=== PATIENT | male | born 1940 ===

== ENCOUNTER 2020-08-10 16:41 | Inpatient (IN) ==
[2020-08-10] MEDS ORDERED: Melatonin 3 MG TABLET PO PRN (21:04)
[2020-08-10] MEDS ORDERED: Ondansetron 4 MG/2 ML VIAL IVP PRN (21:04)
[2020-08-10] MEDS ORDERED: Naloxone 0.4 MG/ML INJ IVP PRN (21:04)
[2020-08-10] MEDS ORDERED: Dextrose Gel 15 GM/37.5 ML TUBE PO PRN ×2 (21:10)
[2020-08-10] MEDS ORDERED: *HR* Dextrose 50 % in Water (Vial) 50 ML VIAL IVP PRN (21:10)
[2020-08-10] MEDS ORDERED: D5% in Water 1,000 ML IVC PRN (21:10)
[2020-08-10 22:03] LABS: VBG HCO3 18 mEq/L (21-27); VBG PCO2 64 mmHg (41-51); VBG PH 7.05 pH Units (7.32-7.42); VBG PO2 46 mmHg (25-50)
[2020-08-10 22:26] LABS: ABG Base Excess -12 mEq/L (-2 to 3); ABG HCO3 18 mEq/L (21-27); ABG Oxygen Saturation 90 % (95-98); ABG PCO2 59 mmHg (35-45); ABG PO2 81 mmHg (85-104); ABG TCO2 20 mEq/L (20-26)
[2020-08-10 23:11] LABS: Blood Urea Nitrogen > 130 mg/dL (8-23); Calcium 7.9 mg/dL (8.6-10.3); Carbon Dioxide 15 mEq/L (23-29); Chloride 96 mEq/L (98-107); Glucose 121 mg/dL (70-105); Potassium 5.1 mEq/L (3.5-5.1); Sodium 127 mEq/L (136-145); eGFR For African Americans 10 (> 60); eGFR For Non-African Americans 9 (> 60)
[2020-08-10] MEDS: 0.9 % Sodium Chloride 1,000 ML IVC SCH (23:59)
[2020-08-11 02:28] LABS: Basophils % 0.1 %; Eosinophils % 0.1 %; Hematocrit 32.3 % (37.5-50.1); Immature Granulocytes % 1.1 % (0-4); Lymphocytes # 1.9 K/mcL (0.6-4.6); Lymphocytes % 13.2 %; Mean Corpuscular Hemoglobin 29.9 pg (28.0-33.3); Mean Corpuscular Volume 96.7 fL (83.0-100.0); Mean Platelet Volume 10.2 fL (9.4-12.4); Monocytes # 1.5 K/mcL (0.0-1.3); Monocytes % 10.4 %; Neutrophils # 10.9 K/mcL (1.6-8.9); Platelet Count 200 K/mcL (140-400); Red Blood Count 3.34 M/mcL (4.19-5.50); Red Cell Distribution Width 13.1 % (11.5-14.5); Segmented Neutrophils % 75.1 %; White Blood Count 14.5 K/mcL (4.3-11.1)
[2020-08-11 02:54] LABS: Alanine Aminotransferase 9 Units/L (7-52); Albumin 3.8 g/dL (3.5-5.7); Albumin/Globulin Ratio 1.4 (1.1-2.2); Alkaline Phosphatase 68 Units/L (34-104); Aspartate Amino Transferase 15 Units/L (13-39); Bilirubin,Total 0.2 mg/dL (0.3-1.0); Blood Urea Nitrogen > 130 mg/dL (8-23); Calcium 7.8 mg/dL (8.6-10.3); Carbon Dioxide 15 mEq/L (23-29); Chloride 96 mEq/L (98-107); Globulin 2.8 g/dL (2.4-3.5); Glucose 104 mg/dL (70-105); Magnesium 3.6 mg/dL (1.6-2.6); Phosphorous 11.1 mg/dL (2.7-4.5); Sodium 128 mEq/L (136-145); Total Protein 6.6 g/dL (6.4-8.9); Troponin I < 0.03 ng/mL (< 0.04); eGFR For African Americans 10 (> 60); eGFR For Non-African Americans 8 (> 60)
[2020-08-11] MEDS ORDERED: Calcium Gluconate 1gm/50mL 1 GM/50 ML BAG IVPB ONE (03:45)
[2020-08-11 03:59] LABS: Creatine Kinase 209 Units/L (30-223); Uric Acid 15.7 mg/dL (2.3-7.6)
[2020-08-11] MEDS: Azithromycin 500 MG in D5% in Water 250 ML IVPB SCH (05:45)
[2020-08-11 05:51] LABS: ABG Base Excess -11 mEq/L (-2 to 3); ABG HCO3 19 mEq/L (21-27); ABG Oxygen Saturation 91 % (95-98); ABG PCO2 61 mmHg (35-45); ABG PH 7.11 pH Units (7.32-7.45); ABG PO2 83 mmHg (85-104); ABG TCO2 21 mEq/L (20-26)
[2020-08-11] MEDS ORDERED: Insulin LISPRO 300 UNITS/3 ML VIAL SUBQ SCH ×2 (07:30→21:00)
[2020-08-11] MEDS ORDERED: Sodium Bicarbonate 150 MEQ in D5% in Water 1,000 ML IVC SCH (07:45)
[2020-08-11] MEDS: Calcium Acetate 667 MG CAPSULE PO SCH ×3 (08:00→15:51)
[2020-08-11] MEDS: cefTRIAXone 1,000 MG in Water for inj. (sterile) 10 ML IVP SCH (08:03)
[2020-08-11] MEDS: 0.9 % Sodium Chloride 1,000 ML IVC SCH (08:05)
[2020-08-11 08:52] LABS: Blood Urea Nitrogen > 130 mg/dL (8-23); Calcium 7.8 mg/dL (8.6-10.3); Carbon Dioxide 17 mEq/L (23-29); Chloride 98 mEq/L (98-107); Glucose 94 mg/dL (70-105); Magnesium 3.4 mg/dL (1.6-2.6); Phosphorous 10.3 mg/dL (2.7-4.5); Sodium 128 mEq/L (136-145); eGFR For African Americans 9 (> 60); eGFR For Non-African Americans 8 (> 60)
[2020-08-11] MEDS: Insulin LISPRO 300 UNITS/3 ML VIAL SUBQ SCH ×3 (11:38→23:56)
[2020-08-11] MEDS ORDERED: 0.9 % Sodium Chloride 500 ML IVC ONE (15:27)
[2020-08-11] MEDS: *HR* Heparin 5,000 UNIT/ML VIAL SQ SCH (17:43)
[2020-08-11 17:59] LABS: Bacteria,Urine Few per hpf (None-Few); Bilirubin,Urine Negative (Negative); Blood,Urine Large (Negative); Clarity,Urine Turbid (Clear); Color,Urine Light-Yellow (Yellow); Glucose,Urine (UA) Normal (Normal); Ketones,Urine Negative (Negative); Leukocyte Esterase,Urine Large (Negative); Mucus,Urine Few per lpf (None-Few); Nitrite,Urine Negative (Negative); PH,Urine 5.5 pH Units (5.0-8.0); Protein,Urine 100 mg/dL (Neg-Trace); Specific Gravity,Urine 1.017 (1.010-1.025); Squamous Epithelial Cell,Urine Few per hpf (None-Few); Urobilinogen,Urine Normal (Normal)
[2020-08-11 18:10] LABS: Sodium, Urine 12.9 mEq/L
[2020-08-11] MEDS ORDERED: Lactulose Oral Soln 20 GM/30 ML UDC PO PRN (18:21)
[2020-08-11] MEDS: Melatonin 3 MG TABLET PO SCH (21:05)
[2020-08-11] MEDS: Sodium Bicarbonate 150 MEQ in D5% in Water 1,000 ML IVC SCH (22:30)
[2020-08-12 02:04] LABS: Basophils % 0.1 %; Eosinophils % 0.1 %; Hematocrit 29.9 % (37.5-50.1); Hemoglobin 9.8 g/dL (12.9-16.9); Immature Granulocytes % 0.9 % (0-4); Lymphocytes # 1.6 K/mcL (0.6-4.6); Lymphocytes % 11.7 %; Mean Corpuscular HGB Conc 32.8 g/dL (31.6-35.5); Mean Corpuscular Hemoglobin 30.8 pg (28.0-33.3); Mean Platelet Volume 10.5 fL (9.4-12.4); Monocytes # 1.6 K/mcL (0.0-1.3); Monocytes % 11.7 %; Neutrophils # 10.6 K/mcL (1.6-8.9); Platelet Count 185 K/mcL (140-400); Red Blood Count 3.18 M/mcL (4.19-5.50); Segmented Neutrophils % 75.5 %
[2020-08-12 02:29] LABS: Blood Urea Nitrogen > 130 mg/dL (8-23); Calcium 7.4 mg/dL (8.6-10.3); Carbon Dioxide 20 mEq/L (23-29); Chloride 96 mEq/L (98-107); Glucose 139 mg/dL (70-105); Potassium 4.4 mEq/L (3.5-5.1); Sodium 129 mEq/L (136-145); eGFR For African Americans 9 (> 60); eGFR For Non-African Americans 7 (> 60)
[2020-08-12] MEDS: Azithromycin 500 MG in D5% in Water 250 ML IVPB SCH (05:03)
[2020-08-12] MEDS: *HR* Heparin 5,000 UNIT/ML VIAL SQ SCH ×2 (05:03→17:51)
[2020-08-12] MEDS: Insulin LISPRO 300 UNITS/3 ML VIAL SUBQ SCH ×4 (05:49→23:44)
[2020-08-12] MEDS: Calcium Acetate 667 MG CAPSULE PO SCH ×3 (07:23→16:49)
[2020-08-12] MEDS: Sodium Bicarbonate 150 MEQ in D5% in Water 1,000 ML IVC SCH ×4 (07:23→17:50)
[2020-08-12] MEDS: cefTRIAXone 1,000 MG in Water for inj. (sterile) 10 ML IVP SCH (07:33)
[2020-08-12] MEDS: amLODIPine 5 MG TABLET PO SCH (07:34)
[2020-08-12 08:48] LABS: Uric Acid 15.1 mg/dL (2.3-7.6)
[2020-08-12 09:41] LABS: VBG HCO3 25 mEq/L (21-27); VBG PCO2 48 mmHg (41-51); VBG PH 7.32 pH Units (7.32-7.42); VBG PO2 176 mmHg (25-50)
[2020-08-12] MEDS ORDERED: *HR* Heparin 10,000 UNIT/10 ML VIAL IV PRN (10:48)
[2020-08-12] MEDS ORDERED: 0.9 % Sodium Chloride 250 ML IVC PRN ×2 (10:48→10:56)
[2020-08-12] MEDS ORDERED: 0.9 % Sodium Chloride 1,000 ML PRIME SCH (11:00)
[2020-08-12 11:51] LABS: Hepatitis B Surface Antibody < 3.10 mIU/mL
[2020-08-12 12:02] LABS: Hepatitis B Surface Antigen Nonreactive (Nonreactive)
[2020-08-12] MEDS ORDERED: 0.9 % Sodium Chloride 500 ML ONE (13:40)
[2020-08-12] MEDS ORDERED: *HR* Heparin 5,000 UNIT/ML VIAL ONE (13:46)
[2020-08-12 15:43] LABS: Complement C3 95 mg/dL (87-200)
[2020-08-12] MEDS: Melatonin 3 MG TABLET PO SCH (21:38)
[2020-08-13 03:22] LABS: Basophils % 0.1 %; Eosinophils # 0.1 K/mcL (0.0-0.6); Eosinophils % 0.5 %; Hematocrit 25.2 % (37.5-50.1); Immature Granulocytes % 0.6 % (0-4); Lymphocytes # 1.3 K/mcL (0.6-4.6); Mean Corpuscular HGB Conc 32.5 g/dL (31.6-35.5); Mean Corpuscular Volume 92.3 fL (83.0-100.0); Mean Platelet Volume 10.8 fL (9.4-12.4); Monocytes # 1.2 K/mcL (0.0-1.3); Monocytes % 11.2 %; Neutrophils # 8.2 K/mcL (1.6-8.9); Platelet Count 153 K/mcL (140-400); Red Blood Count 2.73 M/mcL (4.19-5.50); Red Cell Distribution Width 13.4 % (11.5-14.5); Segmented Neutrophils % 75.6 %; White Blood Count 10.8 K/mcL (4.3-11.1)
[2020-08-13 03:23] LABS: Hemoglobin 8.2 g/dL (12.9-16.9)
[2020-08-13 03:47] LABS: Calcium 7.3 mg/dL (8.6-10.3); Potassium 3.3 mEq/L (3.5-5.1)
[2020-08-13] MEDS: Sodium Bicarbonate 150 MEQ in D5% in Water 1,000 ML IVC SCH (04:27)
[2020-08-13] MEDS: Azithromycin 500 MG in D5% in Water 250 ML IVPB SCH (04:28)
[2020-08-13] MEDS: Insulin LISPRO 300 UNITS/3 ML VIAL SUBQ SCH ×5 (08:56→20:14)
[2020-08-13] MEDS: amLODIPine 5 MG TABLET PO SCH (08:57)
[2020-08-13] MEDS: Apixaban 5 MG TABLET PO SCH ×2 (08:58→19:37)
[2020-08-13] MEDS: Calcium Acetate 667 MG CAPSULE PO SCH ×3 (08:58→17:27)
[2020-08-13] MEDS ORDERED: 0.9 % Sodium Chloride 250 ML IVC PRN (09:03)
[2020-08-13] MEDS ORDERED: *HR* Heparin 10,000 UNIT/10 ML VIAL IV PRN (09:03)
[2020-08-13] MEDS: cefTRIAXone 1,000 MG in Water for inj. (sterile) 10 ML IVP SCH (09:09)
[2020-08-13] MEDS ORDERED: Potassium Chloride Elixir 20 MEQ/15 ML UDC PO ONE (15:55)
[2020-08-13] MEDS ORDERED: Dextrose Gel 15 GM/37.5 ML TUBE PO PRN ×2 (16:07)
[2020-08-13] MEDS ORDERED: D5% in Water 1,000 ML IVC PRN (16:07)
[2020-08-13] MEDS ORDERED: *HR* Dextrose 50 % in Water (Vial) 50 ML VIAL IVP PRN (16:07)
[2020-08-13 17:47] LABS: Hematocrit 28.1 % (37.5-50.1); Hemoglobin 9.1 g/dL (12.9-16.9)
[2020-08-13] MEDS: Melatonin 3 MG TABLET PO SCH (19:36)
[2020-08-13] MEDS ORDERED: Insulin LISPRO 300 UNITS/3 ML VIAL SUBQ SCH (21:00)
[2020-08-13] MEDS: Acetaminophen 325 MG TABLET PO PRN (21:32)
[2020-08-13] MEDS ORDERED: Simethicone 80 MG TAB.CHEW PO PRN (23:26)
[2020-08-14 03:20] LABS: Basophils % 0.3 %; Eosinophils # 0.1 K/mcL (0.0-0.6); Eosinophils % 0.7 %; Hematocrit 27.9 % (37.5-50.1); Immature Granulocytes % 0.9 % (0-4); Lymphocytes # 2.2 K/mcL (0.6-4.6); Lymphocytes % 18.8 %; Mean Corpuscular HGB Conc 32.3 g/dL (31.6-35.5); Mean Corpuscular Hemoglobin 30.6 pg (28.0-33.3); Mean Corpuscular Volume 94.9 fL (83.0-100.0); Mean Platelet Volume 10.6 fL (9.4-12.4); Monocytes # 1.5 K/mcL (0.0-1.3); Monocytes % 12.9 %; Neutrophils # 7.9 K/mcL (1.6-8.9); Platelet Count 171 K/mcL (140-400); Red Blood Count 2.94 M/mcL (4.19-5.50); Red Cell Distribution Width 13.5 % (11.5-14.5); Segmented Neutrophils % 66.4 %; White Blood Count 11.8 K/mcL (4.3-11.1)
[2020-08-14 03:39] LABS: Calcium 7.9 mg/dL (8.6-10.3); Potassium 3.8 mEq/L (3.5-5.1)
[2020-08-14 04:04] LABS: Folate 8.3 ng/mL (3.0-16.0)
[2020-08-14] MEDS: Azithromycin 500 MG in D5% in Water 250 ML IVPB SCH (04:59)
[2020-08-14] MEDS: amLODIPine 5 MG TABLET PO SCH (07:49)
[2020-08-14] MEDS: Apixaban 5 MG TABLET PO SCH ×2 (07:49→20:43)
[2020-08-14] MEDS: Calcium Acetate 667 MG CAPSULE PO SCH ×3 (07:49→17:21)
[2020-08-14] MEDS: cefTRIAXone 1,000 MG in Water for inj. (sterile) 10 ML IVP SCH (07:50)
[2020-08-14] MEDS: Insulin LISPRO 300 UNITS/3 ML VIAL SUBQ SCH ×4 (07:51→20:43)
[2020-08-14] MEDS: Acetaminophen 325 MG TABLET PO PRN (07:58)
[2020-08-14] MEDS: Ringers Solution, Lactated 1,000 ML IVC SCH (11:50)
[2020-08-14] MEDS: *HR* HYDROcodone/Acet 10/325 mg TABLET PO PRN (11:50)
[2020-08-14] MEDS: Cefdinir 300 MG CAPSULE PO SCH (20:42)
[2020-08-14] MEDS: QUEtiapine Fumarate 25 MG TABLET PO SCH (20:42)
[2020-08-14] MEDS: Melatonin 3 MG TABLET PO SCH (20:43)
[2020-08-15 03:31] LABS: Basophils % 0.2 %; Eosinophils # 0.1 K/mcL (0.0-0.6); Eosinophils % 0.8 %; Hematocrit 29.2 % (37.5-50.1); Hemoglobin 9.3 g/dL (12.9-16.9); Immature Granulocytes % 0.5 % (0-4); Lymphocytes # 1.7 K/mcL (0.6-4.6); Lymphocytes % 12.7 %; Mean Corpuscular HGB Conc 31.8 g/dL (31.6-35.5); Mean Corpuscular Hemoglobin 30.8 pg (28.0-33.3); Mean Corpuscular Volume 96.7 fL (83.0-100.0); Mean Platelet Volume 10.6 fL (9.4-12.4); Monocytes # 1.5 K/mcL (0.0-1.3); Monocytes % 11.3 %; Neutrophils # 9.7 K/mcL (1.6-8.9); Platelet Count 206 K/mcL (140-400); Red Blood Count 3.02 M/mcL (4.19-5.50); Red Cell Distribution Width 13.6 % (11.5-14.5); Segmented Neutrophils % 74.5 %
[2020-08-15 03:51] LABS: Calcium 9.1 mg/dL (8.6-10.3); Potassium 3.5 mEq/L (3.5-5.1)
[2020-08-15] MEDS: Insulin LISPRO 300 UNITS/3 ML VIAL SUBQ SCH ×4 (08:49→21:36)
[2020-08-15] MEDS: Calcium Acetate 667 MG CAPSULE PO SCH ×3 (08:59→16:55)
[2020-08-15] MEDS: Cefdinir 300 MG CAPSULE PO SCH ×2 (09:00→21:38)
[2020-08-15] MEDS ORDERED: Azithromycin 250 MG TABLET PO SCH (09:00)
[2020-08-15] MEDS: amLODIPine 5 MG TABLET PO SCH (09:01)
[2020-08-15] MEDS: Apixaban 5 MG TABLET PO SCH ×2 (09:01→21:36)
[2020-08-15 09:57] LABS: Serine Protease-3 Antibody 1 AU/mL (0-19)
[2020-08-15] MEDS ORDERED: Azithromycin 250 MG TABLET PO ONE (14:32)
[2020-08-15] MEDS: *HR* HYDROcodone/Acet 10/325 mg TABLET PO PRN (17:00)
[2020-08-15] MEDS: Ringers Solution, Lactated 1,000 ML IVC SCH (21:35)
[2020-08-15] MEDS: Clotrimazole/Betameth Dip CRM 45 APPL/45 GM TUBE TP SCH (21:37)
[2020-08-15] MEDS: QUEtiapine Fumarate 25 MG TABLET PO SCH (21:38)
[2020-08-15] MEDS: Melatonin 3 MG TABLET PO SCH (21:38)
[2020-08-16 04:50] LABS: Basophils % 0.2 %; Eosinophils # 0.3 K/mcL (0.0-0.6); Eosinophils % 2.3 %; Hematocrit 30.5 % (37.5-50.1); Hemoglobin 9.6 g/dL (12.9-16.9); Immature Granulocytes % 0.4 % (0-4); Lymphocytes # 2.2 K/mcL (0.6-4.6); Lymphocytes % 15.6 %; Mean Corpuscular HGB Conc 31.5 g/dL (31.6-35.5); Mean Corpuscular Hemoglobin 30.9 pg (28.0-33.3); Mean Corpuscular Volume 98.1 fL (83.0-100.0); Mean Platelet Volume 10.1 fL (9.4-12.4); Monocytes # 1.4 K/mcL (0.0-1.3); Neutrophils # 10.1 K/mcL (1.6-8.9); Platelet Count 224 K/mcL (140-400); Red Blood Count 3.11 M/mcL (4.19-5.50); Red Cell Distribution Width 13.8 % (11.5-14.5); Segmented Neutrophils % 71.5 %; White Blood Count 14.2 K/mcL (4.3-11.1)
[2020-08-16 05:15] LABS: Calcium 9.3 mg/dL (8.6-10.3); Potassium 3.4 mEq/L (3.5-5.1)
[2020-08-16] MEDS: Apixaban 5 MG TABLET PO SCH ×2 (08:28→21:55)
[2020-08-16] MEDS: amLODIPine 5 MG TABLET PO SCH (08:28)
[2020-08-16] MEDS: Cefdinir 300 MG CAPSULE PO SCH ×2 (08:28→21:50)
[2020-08-16] MEDS: Calcium Acetate 667 MG CAPSULE PO SCH ×3 (08:28→16:23)
[2020-08-16] MEDS: Insulin LISPRO 300 UNITS/3 ML VIAL SUBQ SCH ×4 (08:29→21:56)
[2020-08-16] MEDS: Clotrimazole/Betameth Dip CRM 45 APPL/45 GM TUBE TP SCH (08:30)
[2020-08-16] MEDS ORDERED: Azithromycin 250 MG TABLET PO SCH (09:00)
[2020-08-16 09:33] LABS: ANA IgG by ELISA NONE DETECTED (None Detected)
[2020-08-16] MEDS: *HR* HYDROcodone/Acet 10/325 mg TABLET PO PRN (11:34)
[2020-08-16] MEDS ORDERED: E-Z-PAQUE (BARIUM SULF) SUSP 1 BOTTLE PO ONE (14:02)
[2020-08-16] MEDS ORDERED: E-Z-HD (BARIUM SULF) SUSPENSION PO ONE (14:02)
[2020-08-16 16:03] LABS: Bilirubin,Urine Negative (Negative); Blood,Urine Moderate (Negative); Clarity,Urine Turbid (Clear); Color,Urine Light-Yellow (Yellow); Glucose,Urine (UA) Normal (Normal); Ketones,Urine 10 mg/dL (Negative); Leukocyte Esterase,Urine Large (Negative); Mucus,Urine Few per lpf (None-Few); Nitrite,Urine Negative (Negative); Protein,Urine 70 mg/dL (Neg-Trace); RBC,Urine 50-100 per hpf (0-3); Renal Epithelial Cells,Urine Few per hpf (None-Few); Specific Gravity,Urine 1.017 (1.010-1.025); Squamous Epithelial Cell,Urine Few per hpf (None-Few); Transitional Epi Cells,Urine Few per hpf (None-Few); Urobilinogen,Urine Normal (Normal); WBC,Urine 50-100 per hpf (0-3)
[2020-08-16] MEDS: Melatonin 3 MG TABLET PO SCH (21:51)
[2020-08-16] MEDS: QUEtiapine Fumarate 25 MG TABLET PO SCH (21:55)
[2020-08-17 05:18] LABS: Basophils % 0.3 %; Eosinophils # 0.5 K/mcL (0.0-0.6); Eosinophils % 4.4 %; Hematocrit 29.7 % (37.5-50.1); Hemoglobin 9.4 g/dL (12.9-16.9); Immature Granulocytes % 0.5 % (0-4); Lymphocytes # 2.3 K/mcL (0.6-4.6); Lymphocytes % 19.6 %; Mean Corpuscular HGB Conc 31.6 g/dL (31.6-35.5); Mean Corpuscular Hemoglobin 30.8 pg (28.0-33.3); Mean Corpuscular Volume 97.4 fL (83.0-100.0); Mean Platelet Volume 10.4 fL (9.4-12.4); Monocytes # 1.2 K/mcL (0.0-1.3); Monocytes % 10.5 %; Neutrophils # 7.4 K/mcL (1.6-8.9); Platelet Count 225 K/mcL (140-400); Red Blood Count 3.05 M/mcL (4.19-5.50); Red Cell Distribution Width 13.6 % (11.5-14.5); Segmented Neutrophils % 64.7 %; White Blood Count 11.5 K/mcL (4.3-11.1)
[2020-08-17 05:37] LABS: Calcium 9.2 mg/dL (8.6-10.3); Potassium 3.4 mEq/L (3.5-5.1)
[2020-08-17] MEDS: Calcium Acetate 667 MG CAPSULE PO SCH ×2 (08:36→11:36)
[2020-08-17] MEDS: Cefdinir 300 MG CAPSULE PO SCH ×2 (08:36→19:52)
[2020-08-17] MEDS: amLODIPine 5 MG TABLET PO SCH (08:36)
[2020-08-17] MEDS: Apixaban 5 MG TABLET PO SCH ×2 (08:36→19:56)
[2020-08-17] MEDS: Insulin LISPRO 300 UNITS/3 ML VIAL SUBQ SCH ×4 (08:37→20:00)
[2020-08-17] MEDS: Clotrimazole/Betameth Dip CRM 45 APPL/45 GM TUBE TP SCH (08:56)
[2020-08-17] MEDS: Melatonin 3 MG TABLET PO SCH (19:53)
[2020-08-17] MEDS: QUEtiapine Fumarate 25 MG TABLET PO SCH (19:54)
[2020-08-17] MEDS: *HR* HYDROcodone/Acet 10/325 mg TABLET PO PRN (20:02)
[2020-08-18 04:04] LABS: Basophils % 0.2 %; Eosinophils # 0.4 K/mcL (0.0-0.6); Eosinophils % 2.7 %; Hematocrit 31.7 % (37.5-50.1); Hemoglobin 10.1 g/dL (12.9-16.9); Immature Granulocytes % 0.5 % (0-4); Lymphocytes # 2.2 K/mcL (0.6-4.6); Lymphocytes % 16.9 %; Mean Corpuscular HGB Conc 31.9 g/dL (31.6-35.5); Mean Corpuscular Hemoglobin 30.9 pg (28.0-33.3); Mean Corpuscular Volume 96.9 fL (83.0-100.0); Mean Platelet Volume 9.9 fL (9.4-12.4); Monocytes # 1.3 K/mcL (0.0-1.3); Monocytes % 9.8 %; Neutrophils # 9.2 K/mcL (1.6-8.9); Platelet Count 232 K/mcL (140-400); Red Blood Count 3.27 M/mcL (4.19-5.50); Red Cell Distribution Width 13.6 % (11.5-14.5); Segmented Neutrophils % 69.9 %; White Blood Count 13.2 K/mcL (4.3-11.1)
[2020-08-18 04:24] LABS: Calcium 9.4 mg/dL (8.6-10.3); Potassium 3.7 mEq/L (3.5-5.1)
[2020-08-18] MEDS: Apixaban 5 MG TABLET PO SCH ×2 (09:24→19:51)
[2020-08-18] MEDS: amLODIPine 5 MG TABLET PO SCH (09:24)
[2020-08-18] MEDS: Insulin LISPRO 300 UNITS/3 ML VIAL SUBQ SCH ×4 (09:24→19:52)
[2020-08-18] MEDS: Cefdinir 300 MG CAPSULE PO SCH (09:24)
[2020-08-18] MEDS: *HR* HYDROcodone/Acet 10/325 mg TABLET PO PRN ×2 (09:26→19:59)
[2020-08-18] MEDS: Clotrimazole/Betameth Dip CRM 45 APPL/45 GM TUBE TP SCH (09:40)
[2020-08-18] MEDS: Melatonin 3 MG TABLET PO SCH (19:51)
[2020-08-18] MEDS: Insulin DETEMIR 100 UNIT/ML X5UNITS SUBQ SCH (19:52)
[2020-08-18] MEDS: QUEtiapine Fumarate 25 MG TABLET PO SCH (19:52)
[2020-08-19] MEDS: amLODIPine 5 MG TABLET PO SCH (08:42)
[2020-08-19] MEDS: Apixaban 5 MG TABLET PO SCH ×2 (08:42→21:07)
[2020-08-19] MEDS: *HR* HYDROcodone/Acet 10/325 mg TABLET PO PRN ×2 (08:42→21:12)
[2020-08-19] MEDS: Clotrimazole/Betameth Dip CRM 45 APPL/45 GM TUBE TP SCH (08:51)
[2020-08-19] MEDS: Insulin LISPRO 300 UNITS/3 ML VIAL SUBQ SCH ×4 (09:02→21:12)
[2020-08-19 09:59] LABS: Basophils # 0.1 K/mcL (0.0-0.2); Basophils % 0.4 %; Eosinophils # 0.3 K/mcL (0.0-0.6); Hematocrit 32.9 % (37.5-50.1); Immature Granulocytes % 0.6 % (0-4); Lymphocytes # 1.8 K/mcL (0.6-4.6); Lymphocytes % 12.7 %; Mean Corpuscular HGB Conc 30.4 g/dL (31.6-35.5); Mean Corpuscular Hemoglobin 29.7 pg (28.0-33.3); Mean Corpuscular Volume 97.6 fL (83.0-100.0); Mean Platelet Volume 10.2 fL (9.4-12.4); Monocytes # 1.2 K/mcL (0.0-1.3); Monocytes % 8.9 %; Neutrophils # 10.4 K/mcL (1.6-8.9); Platelet Count 211 K/mcL (140-400); Red Blood Count 3.37 M/mcL (4.19-5.50); Red Cell Distribution Width 13.6 % (11.5-14.5); Segmented Neutrophils % 75.4 %; White Blood Count 13.8 K/mcL (4.3-11.1)
[2020-08-19 10:19] LABS: Calcium 8.6 mg/dL (8.6-10.3); Potassium 4.1 mEq/L (3.5-5.1)
[2020-08-19 15:05] LABS: Estimated Average Glucose 186 mg/dl; Hemoglobin A1C 8.1 %
[2020-08-19] MEDS: Ipratropium/Albuterol Neb 3 ML IH SCH ×2 (15:32→22:33)
[2020-08-19] MEDS: 0.9 % Sodium Chloride 1,000 ML IVC SCH (19:22)
[2020-08-19] MEDS: Melatonin 3 MG TABLET PO SCH (21:06)
[2020-08-19] MEDS: QUEtiapine Fumarate 25 MG TABLET PO SCH (21:06)
[2020-08-19] MEDS: Piperacillin/Tazobactam 3.375 GM in 0.9 % Sodium Chloride Mini Bag 100 ML IVPB SCH (21:07)
[2020-08-19] MEDS: Insulin DETEMIR 100 UNIT/ML X5UNITS SUBQ SCH (21:12)
[2020-08-19 21:24] LABS: Bacteria,Urine Few per hpf (None-Few); Bilirubin,Urine Negative (Negative); Blood,Urine Negative (Negative); Clarity,Urine Clear (Clear); Color,Urine Yellow (Yellow); Glucose,Urine (UA) 50 mg/dL (Normal); Hyaline Casts,Urine Few per lpf (None Seen); Ketones,Urine Negative (Negative); Leukocyte Esterase,Urine Large (Negative); Mucus,Urine Few per lpf (None-Few); Nitrite,Urine Negative (Negative); Protein,Urine Trace mg/dL (Neg-Trace); Squamous Epithelial Cell,Urine Few per hpf (None-Few); Urobilinogen,Urine Normal (Normal); WBC,Urine 30-50 per hpf (0-3)
[2020-08-20] MEDS: Ipratropium/Albuterol Neb 3 ML IH SCH ×4 (03:21→21:32)
[2020-08-20 05:33] LABS: Basophils % 0.3 %; Eosinophils # 0.5 K/mcL (0.0-0.6); Eosinophils % 4.1 %; Hematocrit 28.2 % (37.5-50.1); Hemoglobin 8.7 g/dL (12.9-16.9); Immature Granulocytes % 0.4 % (0-4); Lymphocytes # 2.4 K/mcL (0.6-4.6); Lymphocytes % 20.3 %; Mean Corpuscular HGB Conc 30.9 g/dL (31.6-35.5); Mean Corpuscular Hemoglobin 30.3 pg (28.0-33.3); Mean Corpuscular Volume 98.3 fL (83.0-100.0); Mean Platelet Volume 10.3 fL (9.4-12.4); Monocytes # 1.1 K/mcL (0.0-1.3); Monocytes % 8.8 %; Neutrophils # 7.9 K/mcL (1.6-8.9); Platelet Count 188 K/mcL (140-400); Red Blood Count 2.87 M/mcL (4.19-5.50); Red Cell Distribution Width 13.6 % (11.5-14.5); Segmented Neutrophils % 66.1 %; White Blood Count 11.9 K/mcL (4.3-11.1)
[2020-08-20] MEDS: Insulin LISPRO 300 UNITS/3 ML VIAL SUBQ SCH ×4 (07:47→21:14)
[2020-08-20] MEDS: 0.9 % Sodium Chloride 1,000 ML IVC SCH ×2 (07:48→21:12)
[2020-08-20] MEDS: Apixaban 5 MG TABLET PO SCH ×2 (07:48→21:12)
[2020-08-20] MEDS: Piperacillin/Tazobactam 3.375 GM in 0.9 % Sodium Chloride Mini Bag 100 ML IVPB SCH ×2 (07:48→21:11)
[2020-08-20] MEDS: Clotrimazole/Betameth Dip CRM 45 APPL/45 GM TUBE TP SCH (07:49)
[2020-08-20] MEDS: *HR* HYDROcodone/Acet 10/325 mg TABLET PO PRN (07:51)
[2020-08-20] MEDS: QUEtiapine Fumarate 25 MG TABLET PO SCH (21:12)
[2020-08-20] MEDS: Insulin DETEMIR 100 UNIT/ML X5UNITS SUBQ SCH (21:13)
[2020-08-20] MEDS: Melatonin 3 MG TABLET PO SCH (21:13)
[2020-08-20] MEDS: Acetaminophen 325 MG TABLET PO PRN (21:17)
[2020-08-21] MEDS: Ipratropium/Albuterol Neb 3 ML IH SCH ×4 (03:19→21:51)
[2020-08-21 03:21] LABS: Basophils % 0.4 %; Eosinophils # 0.4 K/mcL (0.0-0.6); Eosinophils % 3.6 %; Hematocrit 28.7 % (37.5-50.1); Hemoglobin 8.6 g/dL (12.9-16.9); Immature Granulocytes % 0.7 % (0-4); Lymphocytes # 1.6 K/mcL (0.6-4.6); Lymphocytes % 15.6 %; Mean Corpuscular Hemoglobin 29.8 pg (28.0-33.3); Mean Corpuscular Volume 99.3 fL (83.0-100.0); Mean Platelet Volume 10.4 fL (9.4-12.4); Monocytes # 0.9 K/mcL (0.0-1.3); Monocytes % 8.8 %; Neutrophils # 7.4 K/mcL (1.6-8.9); Platelet Count 175 K/mcL (140-400); Red Blood Count 2.89 M/mcL (4.19-5.50); Red Cell Distribution Width 13.7 % (11.5-14.5); Segmented Neutrophils % 70.9 %; White Blood Count 10.5 K/mcL (4.3-11.1)
[2020-08-21 03:39] LABS: Calcium 8.1 mg/dL (8.6-10.3); Potassium 4.4 mEq/L (3.5-5.1)
[2020-08-21] MEDS: Apixaban 5 MG TABLET PO SCH ×2 (08:04→20:22)
[2020-08-21] MEDS: Insulin LISPRO 300 UNITS/3 ML VIAL SUBQ SCH ×4 (08:04→20:23)
[2020-08-21] MEDS: *HR* HYDROcodone/Acet 10/325 mg TABLET PO PRN ×2 (08:04→20:31)
[2020-08-21] MEDS: Piperacillin/Tazobactam 3.375 GM in 0.9 % Sodium Chloride Mini Bag 100 ML IVPB SCH ×2 (08:05→20:35)
[2020-08-21] MEDS: Clotrimazole/Betameth Dip CRM 45 APPL/45 GM TUBE TP SCH (08:05)
[2020-08-21] MEDS: 0.9 % Sodium Chloride 1,000 ML IVC SCH (11:18)
[2020-08-21] MEDS: 0.9 % Sodium Chloride 2,000 ML IVC SCH (14:45)
[2020-08-21] MEDS ORDERED: Saline Nasal Spray 44 ML BOTTLE NS PRN (19:33)
[2020-08-21] MEDS: QUEtiapine Fumarate 25 MG TABLET PO SCH (20:22)
[2020-08-21] MEDS: Melatonin 3 MG TABLET PO SCH (20:23)
[2020-08-21] MEDS: Insulin DETEMIR 100 UNIT/ML X5UNITS SUBQ SCH (20:31)
[2020-08-22 03:10] LABS: Basophils % 0.2 %; Eosinophils # 0.3 K/mcL (0.0-0.6); Eosinophils % 3.6 %; Hematocrit 27.4 % (37.5-50.1); Hemoglobin 8.1 g/dL (12.9-16.9); Immature Granulocytes % 0.4 % (0-4); Lymphocytes # 1.5 K/mcL (0.6-4.6); Lymphocytes % 16.1 %; Mean Corpuscular HGB Conc 29.6 g/dL (31.6-35.5); Mean Corpuscular Hemoglobin 30.2 pg (28.0-33.3); Mean Corpuscular Volume 102.2 fL (83.0-100.0); Mean Platelet Volume 10.5 fL (9.4-12.4); Monocytes # 0.9 K/mcL (0.0-1.3); Monocytes % 9.8 %; Neutrophils # 6.4 K/mcL (1.6-8.9); Platelet Count 161 K/mcL (140-400); Red Blood Count 2.68 M/mcL (4.19-5.50); Segmented Neutrophils % 69.9 %; White Blood Count 9.2 K/mcL (4.3-11.1)
[2020-08-22 03:30] LABS: Potassium 4.5 mEq/L (3.5-5.1)
[2020-08-22] MEDS: Ipratropium/Albuterol Neb 3 ML IH SCH ×4 (03:50→21:20)
[2020-08-22] MEDS: Apixaban 5 MG TABLET PO SCH (09:20)
[2020-08-22] MEDS: Insulin LISPRO 300 UNITS/3 ML VIAL SUBQ SCH ×4 (09:21→21:05)
[2020-08-22] MEDS: *HR* HYDROcodone/Acet 10/325 mg TABLET PO PRN ×2 (09:21→21:05)
[2020-08-22] MEDS: Piperacillin/Tazobactam 3.375 GM in 0.9 % Sodium Chloride Mini Bag 100 ML IVPB SCH ×2 (09:22→17:30)
[2020-08-22] MEDS: 0.9 % Sodium Chloride 2,000 ML IVC SCH (09:22)
[2020-08-22] MEDS: Clotrimazole/Betameth Dip CRM 45 APPL/45 GM TUBE TP SCH (09:25)
[2020-08-22] MEDS ORDERED: 0.9 % Sodium Chloride 2,000 ML IVC SCH (12:59)
[2020-08-22] MEDS: QUEtiapine Fumarate 25 MG TABLET PO SCH (21:04)
[2020-08-22] MEDS: Melatonin 3 MG TABLET PO SCH (21:04)
[2020-08-22] MEDS: Insulin DETEMIR 100 UNIT/ML X5UNITS SUBQ SCH (21:05)
[2020-08-23] MEDS: Piperacillin/Tazobactam 3.375 GM in 0.9 % Sodium Chloride Mini Bag 100 ML IVPB SCH ×3 (02:08→17:21)
[2020-08-23] MEDS: Ipratropium/Albuterol Neb 3 ML IH SCH ×4 (03:45→22:11)
[2020-08-23 03:58] LABS: Basophils % 0.2 %; Eosinophils # 0.3 K/mcL (0.0-0.6); Eosinophils % 2.8 %; Hematocrit 28.2 % (37.5-50.1); Hemoglobin 8.2 g/dL (12.9-16.9); Immature Granulocytes % 0.2 % (0-4); Lymphocytes # 1.6 K/mcL (0.6-4.6); Lymphocytes % 17.3 %; Mean Corpuscular HGB Conc 29.1 g/dL (31.6-35.5); Mean Corpuscular Volume 103.3 fL (83.0-100.0); Mean Platelet Volume 10.7 fL (9.4-12.4); Monocytes # 0.9 K/mcL (0.0-1.3); Monocytes % 9.6 %; Neutrophils # 6.3 K/mcL (1.6-8.9); Platelet Count 160 K/mcL (140-400); Red Blood Count 2.73 M/mcL (4.19-5.50); Segmented Neutrophils % 69.9 %
[2020-08-23 04:13] LABS: BUN/Creatinine Ratio 27 (6-26); Blood Urea Nitrogen 34 mg/dL (8-23); Carbon Dioxide 27 mEq/L (23-29); Chloride 110 mEq/L (98-107); Glucose 148 mg/dL (70-105); Osmolality,Calculated 306 (280-300); Potassium 4.7 mEq/L (3.5-5.1); Sodium 143 mEq/L (136-145); eGFR For African Americans > 60 (> 60); eGFR For Non-African Americans 54 (> 60)
[2020-08-23 08:44] LABS: % Iron Saturation 15 % (20-55); Iron 41 mcg/dL (65-175); Transferrin 192 mg/dL (203-362)
[2020-08-23] MEDS: *HR* HYDROcodone/Acet 10/325 mg TABLET PO PRN (08:47)
[2020-08-23] MEDS: Insulin LISPRO 300 UNITS/3 ML VIAL SUBQ SCH ×4 (08:48→20:00)
[2020-08-23] MEDS: Clotrimazole/Betameth Dip CRM 45 APPL/45 GM TUBE TP SCH (08:49)
[2020-08-23] MEDS: Melatonin 3 MG TABLET PO SCH (20:04)
[2020-08-23] MEDS: QUEtiapine Fumarate 25 MG TABLET PO SCH (20:05)
[2020-08-23] MEDS: Insulin DETEMIR 100 UNIT/ML X5UNITS SUBQ SCH (20:08)
[2020-08-24] MEDS: Piperacillin/Tazobactam 3.375 GM in 0.9 % Sodium Chloride Mini Bag 100 ML IVPB SCH ×2 (02:41→11:00)
[2020-08-24 02:58] LABS: Basophils % 0.3 %; Eosinophils # 0.3 K/mcL (0.0-0.6); Eosinophils % 2.9 %; Hematocrit 26.6 % (37.5-50.1); Hemoglobin 7.8 g/dL (12.9-16.9); Immature Granulocytes % 0.3 % (0-4); Lymphocytes # 1.9 K/mcL (0.6-4.6); Lymphocytes % 18.3 %; Mean Corpuscular HGB Conc 29.3 g/dL (31.6-35.5); Mean Corpuscular Volume 102.3 fL (83.0-100.0); Mean Platelet Volume 10.3 fL (9.4-12.4); Monocytes % 9.1 %; Neutrophils # 7.3 K/mcL (1.6-8.9); Platelet Count 171 K/mcL (140-400); Red Cell Distribution Width 13.8 % (11.5-14.5); Segmented Neutrophils % 69.1 %; White Blood Count 10.6 K/mcL (4.3-11.1)
[2020-08-24 03:17] LABS: BUN/Creatinine Ratio 19 (6-26); Blood Urea Nitrogen 23 mg/dL (8-23); Calcium 8.2 mg/dL (8.6-10.3); Carbon Dioxide 30 mEq/L (23-29); Chloride 109 mEq/L (98-107); Glucose 97 mg/dL (70-105); Osmolality,Calculated 300 (280-300); Potassium 4.3 mEq/L (3.5-5.1); Sodium 143 mEq/L (136-145); eGFR For African Americans > 60 (> 60); eGFR For Non-African Americans 57 (> 60)
[2020-08-24] MEDS: Ipratropium/Albuterol Neb 3 ML IH SCH ×3 (03:48→15:48)
[2020-08-24] MEDS: *HR* HYDROcodone/Acet 10/325 mg TABLET PO PRN (04:44)
[2020-08-24 04:49] LABS: Folate 10.8 ng/mL (3.0-16.0)
[2020-08-24] MEDS: Insulin LISPRO 300 UNITS/3 ML VIAL SUBQ SCH ×3 (07:43→15:54)
[2020-08-24] MEDS ORDERED: *HR* Propofol 200 MG/20 ML VIAL IVP ONE (08:55)
[2020-08-24] MEDS ORDERED: Lidocaine -MPF 2% 5 ML VIAL ONE (08:55)
[2020-08-24] MEDS ORDERED: Clotrimazole/Betameth Dip CRM 45 APPL/45 GM TUBE TP SCH (09:00)
[2020-08-24] MEDS: Clotrimazole/Betameth Dip CRM 45 APPL/45 GM TUBE TP SCH (09:00)
[2020-08-24] MEDS ORDERED: Cyanocobalamin (B-12) 1,000 MCG TABLET PO SCH (09:00)
[2020-08-24 15:45] VITALS: BP 159/78
== END 2020-08-24 16:36 | DRG 871 ==
LOC: 2NNU → SUATTDRO 08-11 15:47 → 2ANU 08-14 19:04
PROVIDERS: ADMIT Internal Medicine; ATTEND Internal Medicine